=== PATIENT | male | born 1955 | race African-American/Black ===

== ENCOUNTER 2019-06-04 09:12 | Emergency (ER) | payer MEDICARE, OTHER ==
[2019-06-04] MEDS ORDERED: Furosemide 100 MG/10 ML VIAL ONE (09:47)
[2019-06-04] MEDS ORDERED: methylPREDNISolone Sod Succ/PF 125 MG/2 ML VIAL ONE (09:47)
[2019-06-04 09:50] LABS: Hemoglobin 13.3 g/dL (14.0-18.0); Mean Corpuscular HGB CONC 31.6 g/dL (32.0-36.0); Mean Corpuscular Hemoglobin 22.4 pg (27.0-31.0); Mean Corpuscular Volume 70.8 fL (78.0-98.0); Mean Platelet Volume 6.8 fL (7.4-10.4); Platelet Count 357 thou/uL (130-400); RBC Distribution Width 16.5 % (11.5-14.5); Red Blood Cell (RBC) Count 5.94 mill/uL (4.70-6.10); White Blood Cell (WBC) Count 8.8 thou/uL (4.8-10.8)
[2019-06-04 09:59] LABS: ALT (SGPT) 12 U/L (8-55); AST (SGOT) 19 U/L (5-34); Albumin 3.7 g/dL (3.4-4.8); Alkaline Phosphatase 127 U/L (40-110); Anion Gap 14 mmol/L (10-20); BUN (Urea Nitrogen) 12 mg/dL (8.4-25.7); Calc. Creatinine Clearance 0 mL/min (70-130); Calcium 8.7 mg/dL (7.8-10.44); Carbon Dioxide 25 mmol/L (23-31); Chloride 102 mmol/L (98-107); Estimated GFR-MDRD Greater than 90; Globulin 4.5 g/dL (2.4-3.5); Glucose 99 mg/dL (80-115); Potassium 3.9 mmol/L (3.5-5.1); Protein, Total 8.2 g/dL (5.8-8.1); Sodium 137 mmol/L (136-145)
[2019-06-04 10:17] LABS: Eosinophils 3 % (0-10); Hypochromia SLIGHT = 6-15 cells (100X) (0-5/hpf); Lymphocytes 20 % (21-51); MDiff Complete? YES; Microcytosis SLIGHT = 6-15 cells (100X) (0-5/hpf); Monocytes 13 % (0-10); Neutrophil 64 % (42-75); Platelet Morphology Comment Appears Adequate
[2019-06-04 10:23] LABS: Bilirubin Negative (Negative); Blood, Urine Negative (Negative); Clarity Clear (Clear); Glucose, Urine (Dipstick) Negative (Negative); Leukocyte Negative (Negative); Nitrite Negative (Negative); Protein, Urine (Dipstick) 100 mg/dL (Neg-Trace)
[2019-06-04 10:31] LABS: Bacteria/HPF None Seen HPF (None Seen); Epithelial Cast None Seen LPF (None Seen); RBC/HPF 0-3 HPF (0-3); Squamous Epithelial None Seen HPF (0-3); WBC/HPF 0-3 HPF (0-3)
[2019-06-04 10:35] LABS: Amphetamine Detected (NotDetected); Cocaine Metabolite Screen Detected (NotDetected); Methamphetamine Detected (NotDetected); Phencyclidine (PCP) Not Detected (NotDetected); THC/Cannabinoid Screen Not Detected (NotDetected)
[2019-06-04 10:36] LABS: Barbiturates Screen Not Detected (NotDetected); Benzodiazepine Screen Not Detected (NotDetected); Medtox Control Line Valid? VALID (VALID); Methadone Not Detected (NotDetected); Opiate Screen Not Detected (NotDetected); Oxycodone Screen Not Detected (NotDetected); Tricyclic Screen Not Detected (NotDetected)
--- NOTE | 2019-06-04 17:58 | RAD ---
PORTABLE CHEST: 06/04/19 Comparison is made with a 06/21/15 study. The heart is markedly enlarged. Diffuse interstitial infiltrates are present suggestive of edema. The re are probably some small effusions. The cardiac size seems to have increased slightly over the inte rval. IMPRESSION: Findings most consistent with congestive heart failure. POS: HOME
--- NOTE | 2019-06-04 18:22 | CT ---
CT ANGIO OF THE CHEST WITH CONTRAST: 06/04/[address] of the chest was done after a bolus of IV contrast. Reconstructions in various planes throu gh the pulmonary arteries was done afterwards. Comparison is made with a 06/21/15 study. There is adequate opacification of the pulmonary arteries. There are no internal filling defects to s uggest emboli. There is no sign of aortic aneurysm or dissection. No large pericardial effusion was s een. The heart is enlarged and coronal arteriosclerosis is evident. Small pleural effusions are present bilaterally. There are diffuse moderately severe interstitial shaheen nges throughout the lungs. Some of these appear to be chronic interstitial change looking at the old study, and much of it is probable pulmonary edema. CHF is presumed. Scans into the upper abdomen showed no findings of concern in the area scanned. IMPRESSION: 1. No evidence of pulmonary embolism. 2. Congestive heart failure. 3. Baseline interstitial lung disease. 4. Not mentioned above, but present were two small nodules in the left lower lobe measuring 2.2 and 1.5 cm respectively. They were present in 2016 and have really not changed much in size. Findings discussed with Dr. Springer at 1113 on . POS: HOME
== END 2019-06-04 13:00 | disposition short-term general hospital (02) ==
LOC: BURERS 09:12
DX: I50.9 Heart failure, unspecified (principal); I48.91 Unspecified atrial fibrillation; J44.1 Chronic obstructive pulmonary disease with (acute) exacerbation; F14.10 Cocaine abuse, uncomplicated; F15.10 Other stimulant abuse, uncomplicated; Z79.82 Long term (current) use of aspirin; Z79.899 Other long term (current) drug therapy
CPT/HCPCS: 71045; 71275; 80053; 80306; 81003; 81015; 83605; 83880; 84484; 85025; 85379; 87040; 93005; 94760; 96374; 96375; J1940; J2930; J7620